=== PATIENT | female | born 2000 | race Hispanic/Latino ===

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

== ENCOUNTER 2018-10-16 13:32 | Emergency (ER) | payer MEDICAID ==
[2018-10-16 14:15] VITALS: BMI 21.7
[2018-10-16 15:28] LABS: SQUAMOUS EPITHIAL 5 /hpf (0-5); URINE BACTERIA OCC (<OCC); URINE BILIRUBIN NEGATIVE (NEGATIVE); URINE BLOOD NEGATIVE (NEGATIVE); URINE CLARITY CLOUDY (Clear); URINE COLOR YELLOW (YELLOW); URINE GLUCOSE (UA) NEG (NEGATIVE); URINE LEUKOCYTE ESTERASE MOD Leu/uL (Negative); URINE PROTEIN 30 mg/dL (NEGATIVE); URINE UROBILINOGEN 0.2-1.0 mg/dL (0.2-1.0)
--- NOTE | 2018-10-16 17:06 | US ---
Date of service: 10/16/2018 HISTORY: measurement of cervical length COMPARISON: None available. TECHNIQUE: Transvaginal scanning performed FINDINGS: The exam is limited it was directed per requesting physician for cervical length only. CERVIX: Length of cervix is 4.28 cm. FREE FLUID: No significant free fluid noted. OTHER FINDINGS: A single intrauterine gestation is present in cephalic presentation. The placenta is anterior. The heart rate is 145.8 beats per minute. IMPRESSION: Very limited exam-specifically requested 4 cervical length in this patient with a gestational age by LMP of 24 weeks 4 days. The cervical length is 4.28 cm. Otherwise it appears unremarkable. A single intrauterine gestation with cardiac activity is as referenced above.
--- NOTE | 2018-10-17 08:53 | OBHP ---
Datetime: 10/16/2018 13:45 Admit Comment, IP Provider: PNP: [facility] 18 y/o @24.4wks presented c/o intermittent cramping since 1 pm yesterday, 12/05, dysuria since last night, and vaginal spotting which she noticed after wiping at 11am this morning. She denies any abdominal cramping at this time. She endorses FM. She denies loss of fluid, f, c,n,v, cp, sob, light headedness or swelling. OBGYNhx: denies PMH: denies All:denies Surghx: denies Famhx: denies Sochx: denies ROS: 12 points reviewed and are neg unless otherwise mentioned in HPI PE: Cardio: RRR Lungs: cta b/l Abd: Gravid, soft, nontender, no rigidity, no guarding Ext: nonedematous A/P: 1 y/o @24.4wks c/o intermittent cramping, dysuria since last night, and vaginal spotting . -FU UA _ urine culture -Transvaginal ultrasound for cervical length measurement -FHR monitoring: reassuring Case discussed with Dr. Crowe -Lien Gaxiola, PGY-1 Cervical length: 4.28cm wnl; discharge home with labor precautions Addendum: I saw and examined patient at presentation. No evidence of labor at this time. Normal ce rvical length, normal urinalysis. Discussed plan with patient and patient discharged home with prete labor precautions. Sebastien FHR - Baseline A Provider: 130's Gestation - Est Wks by US: 24.4
[2018-10-20 19:38] VITALS: BP 95/50; PULSE 87; RESP 20; TEMP 98.3
== END 2018-10-16 16:45 | disposition home or self-care (01) ==
LOC: H.EROB2 13:32
DX: O26.852 Spotting complicating pregnancy, second trimester (principal); O26.92 Pregnancy related conditions, unspecified, second trimester; R10.2 Pelvic and perineal pain; R30.0 Dysuria; Z3A.24 24 weeks gestation of pregnancy

== ENCOUNTER 2018-12-01 19:45 | Emergency (ER) | payer SELFPAY ==
[2018-12-01 20:05] VITALS: BMI 23.8
--- NOTE | 2018-12-01 20:39 | OBHP ---
Datetime: 12/01/2018 20:30 IP Adm Impression: , intrauterine IP Admit Plan: Observation/Evaluation; Discharge home Admit Comment, IP Provider: Patient is a @ 31.1 wks, previous , presents with on/off abd ominal pain for past few hours, no vaginal bleeding, no leaking, +FM. No dysuria, no N/V, no fever, n o other signs of labor or GI distress. Patient denies any antepartum history, no medical problems, no past surgical history, no allergies, only takes vitamins. VE = L/T/C FHR = 135 mod wolfgang, +accels, no decels, Cat-1 TOCO = Irritability A/P 1. Patient presents with on/off abdominal pain, ruled out for labor and/or chorioamnionitis. VSS, no other signs of labor or infection. 2. FHR = Reactive, Cat-1 tracing 3. Labor signs discussed with patient, patient discharged, instructions to follow up in clinic 11/26 0 Pelvic Type - PN: Adequate Extremities - PN: Normal Abdomen - PN: Normal Back - PN: Normal Breast - PN: Normal Lungs - PN: Normal Heart - PN: Normal Thyroid - PN: Normal Neurologic - PN: Normal HEENT - PN: Normal General - PN: Normal FHR - Baseline A Provider: 135 Contraction Comments Provider: Irritability EGA AdmitDate IP: 31.1 Vital Signs Provider: Reviewed; Within Normal Limits IP Chief Complaint: Uterine contractions NICHD Variability Prov Fetus A: Moderate 6-25bpm NICHD Accel Fetus A IP Provider: [id number] FHR Category Provider Fetus A: Category I NICHD Decel Fetus A IP Provider: None Dilatation, Provider: closed Effacement, Provider: thick Station, Provider: -3 Genitourinary Exam: Normal DTRs - PN: Normal
--- NOTE | 2018-12-01 20:42 | OBDCSUM ---
Datetime: 12/01/2018 20:37 Discharged to, Provider: Home Discharged to, Provider: Home Follow up at, Provider: primary md , [facility] Follow up at, Provider: ob Disch Instr Activity: Normal activity Disch Instr Diet: Regular Discharge Instructions, Provider: Routine instructions given Discharge Diagnosis, Provider: False Labor - Undelivered Discharge Time: 12/01/2018 20:35 Discharge Time: 12/01/2018 20:36 Follow up in weeks, Provider: saturday12/05/18 Follow up in weeks, Provider: this saturday Disch Referrals: None Contraception discussed, Prov: Yes Disch Activity Restrictions: No exercising; No lifting; Minimize walking; Minimize stair-climbing; N o sexual activity; Nothing in vagina - [place], tampons, douche
[2018-12-02 02:29] VITALS: BP 100/56; PULSE 99; O2SAT 100
== END 2018-12-01 20:45 | disposition home or self-care (01) ==
LOC: H.EROB2 19:45
DX: O26.93 Pregnancy related conditions, unspecified, third trimester (principal); R10.2 Pelvic and perineal pain; Z3A.31 31 weeks gestation of pregnancy